=== PATIENT | female | born 1955 | race African-American/Black ===

== ENCOUNTER 2021-01-19 00:09 | Emergency (ER) | payer OTHER ==
[~2021-01-19] VITALS: Ht 165.1 cm; Wt 137.4 kg
[~2021-01-19 00:09] MED LIST: ABILIFY20 MG; ANTIFUNGAL15 G1; AUGMENTIN 875875 M1 PO; COLACE100 MG PO; DITROPAN XL5 M1 PO; DULCOLAX5 MG PO; FLONASE 0.05%50 MCG INH; IBUPROFEN 800800 M1 PO; LISINOPRIL40 MG PO; MEDROLDOSEPACK; NORVASC10 MG PO; PROAIR HFA8.5 GM INH; PROVENTIL HFA6.7 G1 INH; RANITIDINE 150150 M1 PO; VICODIN 5-5001 EACH; VITAMIN D31000 UNI2
[2021-01-19] MEDS ORDERED: LEVO-T100 MCG PO (00:19)
[2021-01-19] MEDS ORDERED: LASIX 40 MG TAB40 MG PO (00:20)
[2021-01-19] MEDS ORDERED: ZOLOFT50 M1 PO (00:20)
[2021-01-19 01:02] LABS: ABSOLUTE NEUTROPHILS 5.1 thou/uL (1.4-8.2); EOSINOPHILS 2.8 % (0.0-3.0); HEMATOCRIT 45.7 % (37.0-47.0); HEMOGLOBIN 14.7 gm/dL (12.0-15.0); LYMPHOCYTES 19.4 % (24.0-44.0); MCH 30.1 pg (26.0-34.0); MCHC 32.1 g/dL (28.0-37.0); MCV 93.8 fL (80.0-100.0); MONOCYTES 8.8 % (1.0-8.0); PLATELET COUNT 181 thou/uL (150-400); RBC 4.88 mil/uL (4.20-5.00); RDW 14.5 % (10.5-14.5); WBC 7.5 thou/uL (4.0-11.0)
[2021-01-19 01:04] LABS: CALCIUM 8.3 mg/dL (8.5-10.1); CREATININE 1.6 mg/dL (0.6-1.0); POTASSIUM 4.7 mmol/L (3.5-5.1)
[2021-01-19 01:14] LABS: DIRECT BILIRUBIN 0.1 mg/dL (<0.1-0.2); TOTAL BILIRUBIN 0.6 mg/dL (0.2-1.0); TOTAL PROTEIN 7.5 g/dL (6.4-8.2)
[2021-01-19] MEDS ORDERED: PREDNISONE50 MG PO (04:55)
[2021-01-19 07:12] VITALS: BP 107/62
--- NOTE | 2021-01-19 07:17 | EKG ---
[place] [address] [facility] [place] [address] ELECTROCARDIOGRAM REPORT Name: ZAMBRANO,KAY Room #: DEP Mirtha#: [id number] Admission: 01/19/21 Attend Phys: Discharge: 01/19/21 Date of : 51 Report #: [id number] [facility] ED Test Date: 2021-01-19 Test Time: 00:24:11 Pat Name: KAY ZAMBRANO Department: Room: Gender: F [employer]: : 1955 Requested By: Dianne Solomon Order Number: [id number] MD: Sammy Luu Measurements Intervals Elliott Rate: 62 P: 71 IA: 202 QRS: 32 QRSD: 123 T: 63 QT: 400 QTc: 407 Interpretive Statements Sinus rhythm Nonspecific intraventricular conduction delay Baseline wander in lead(s) V6 No previous ECG available for comparison Electronically Signed On 01-19-2021 7:16:58 CDT by Sammy Luu [email or web address] <ELECTRONICALLY SIGNED> By: Sammy Luu MD, [facility] 01/19/21 0716 0024 0024 Sammy Luu MD, FACC /EPI
== END 2021-01-19 07:05 | disposition home or self-care (01) ==
LOC: ER 00:09
PROVIDERS: Emergency Medicine
DX: J44.1 Chronic obstructive pulmonary disease with (acute) exacerbation (principal); I50.9 Heart failure, unspecified; I10 Essential (primary) hypertension; G35 Multiple sclerosis; Z98.890 Other specified postprocedural states; Z79.51 Long term (current) use of inhaled steroids; Z79.899 Other long term (current) drug therapy; Z79.1 Long term (current) use of non-steroidal anti-inflammatories (NSAID); Z88.5 Allergy status to narcotic agent